=== PATIENT | female | born 1950 | race Caucasian/White ===

== ENCOUNTER → 2016-06-28 | Outpatient (CLI) | payer MEDICARE ==
--- NOTE | 2016-06-30 18:52 | HM ---
Date Performed: 06/29/2016 Time Performed: 10:03:00 HOOKUP DATE: 06/29/16 10:03:00 AM Tue ANALYSIS START TIME: 06/29/2016 10:08:00 AM ANALYSIS END TIME: 06/30/2016 9:32:47 AM PATIENT AGE: 65 PATIENT HEIGHT PATIENT WEIGHT DRUG LIST PATIENT DIAGNOSIS: STROKE TEST NARRATIVE: The patient's average heart rate was 71 BPM. No episodes of tachycardia wer e noted. Heart rates less than 50 BPM were noted 1% of the time. No pauses exceeding 2.0 seconds were noted. 110 ventricular ectopics, which represented < 1% of the total beat count, were noted . The highest ventricular ectopic frequency occurred from 11:00 AM to 12:00 PM Tue. During this rodolfo e 23 VE(s) occurred. Ventricular ectopics were observed as 110 isolated beat(s) only. No couplets o r runs were noted. 948 supraventricular ectopics, which represented 1% of the total beat count, w ere noted. The highest supraventricular ectopic frequency occurred from 01:00 AM to 02:00 AM Wed. D uring this time 219 SVE(s) occurred. No episodes of ST depression (defined as -1.0 mm or more) we re noted in channel 1. No episodes of ST depression (defined as -1.0 mm or more) were noted in chann el 2. No episodes of ST depression (defined as -1.0 mm or more) were noted in channel 3. TEST INTERPRETATION: [facility] Signed by : Alan Goddard
== END ==
LOC: HCAV 09:32
PROVIDERS: ATTEND Psychiatry & Neurology Neurology
DX: I63.9 Cerebral infarction, unspecified (principal)
CPT/HCPCS: 93225; 93226